=== PATIENT | male | born 1945 | race Caucasian/White ===

== ENCOUNTER → 2022-11-30 12:35 | Outpatient (CLI) | payer MEDICARE, SELFPAY ==
--- NOTE | 2022-11-30 | DI.ECHO.S_ITS ---
[facility]---------+ [facility] +---------+ : : [address] : : : : [id number] : : : : Phone: [phone]---------+ Echocardiogram Report + + :Name: GIANNA LOPEZ Study Date: 11/30/2022 Height: 67 in : :[facility] ReadingLocation: Weight: 166 lb : : Gender: Male BSA: 1.9 m2 : :: 1945 Age: 77 yrs BP: 146/80 mmHg: :Reason For Study: PVCs, dyspnea on exertion : :Ordering Physician: Toribio : :Cathy Schaefer Performed By: Laura Lynne : :Referring: TORIBIO SCHAEFER : + + Interpretation Summary 1) Normal left ventricular thickness, size, wall motion, and systolic function (EF 60-65%). 2) Normal right ventricular size and function. 3) No significant valvular abnormalities. 4) The right ventricular systolic pressure is estimated to be at least 43 mmHg based on an estimated right atrial pressure of 8 mm Hg. 5) No prior Echo available for comparison. Procedure: A two-dimensional transthoracic echocardiogram with color flow and Doppler was performed. The patient was in sinus bradycardia with heart rates between 50-66 bpm during the exam. The patient had frequent PVCs during the exam. Left Ventricle: The left ventricle is normal in size and wall thickness. The ejection fraction is estimated to be 60-65%. Left ventricular systolic function appears normal without focal wall motion abnormalities. Diastolic parameters suggest a relaxation abnormality of the left ventricle, consistent with probable normal filling pressures. Right Ventricle: The right ventricle is normal in size and function. Atria: The left atrium is moderately dilated. Right atrial size is normal. There is no Doppler evidence for an interatrial shunt. Mitral Valve: The mitral valve is normal in structure and function. The mitral valve leaflets appear mildly thickened, but open well. There is trace mitral regurgitation. Aortic Valve: The aortic valve is normal in structure and function. There is no aortic valve stenosis. There is trace aortic regurgitation. Tricuspid Valve: The tricuspid valve is normal in structure and function. There is mild tricuspid regurgitation. The right ventricular systolic pressure is estimated to be at least 43 mmHg based on an estimated right atrial pressure of 8 mm Hg. Pulmonic Valve: The pulmonic valve leaflets are thin and pliable; valve motion is normal. There is no pulmonic valvular regurgitation. Great Vessels: The aortic root is not well visualized but is probably normal size. The dimensions of the ascending aorta are normal. The IVC is dilated (diameter is greater than 2.1 cm) yet it collapses greater than 50% with a sniff. This suggests a right atrial pressure of 8 mm Hg. Pericardium/ Pleura There is no pericardial effusion. There is no pleural effusion. MMode/2D Measurements & Calculations LVIDd: 4.8 cm LVOT diam: 2.0 cm LVIDs: 3.2 cm Ao root diam: 3.6 cm FS: 33.9 % asc Aorta Diam: 3.0 cm EPSS: 0.35 cm IVSd: 1.0 cm LVPWd: 0.94 cm LV flores. diameter/BSA (cm/m^2): 2.6 LV sys. diameter/BSA (cm/m^2): 1.7 LA A2 area: 19.3 cm2 RA long axis: 5.2 cm LA A4 area: 23.6 cm2 RA area: 17.2 cm2 LA length (vol): 5.8 cm RA vol: 48.1 ml LA vol: 67.2 ml RA : 25.8 ml/m2 LA vol index: 36.0 ml/m2 IVC diam: 2.4 cm RVD1 (basal): 3.7 cm TAPSE: 2.3 cm Doppler Measurements & Calculations Ao V2 max: 108.7 cm/sec LVOT Max Marco A: 83.5 cm/sec Ao V2 mean: 83.8 cm/sec LV V1 max P.8 mmHg Ao max P.7 mmHg LV V1 VTI: 16.8 cm Ao mean P.0 mmHg ELVIS(I,D): 2.0 cm2 Ao V2 VTI: 25.1 cm ELVIS(V,D): 2.3 cm2 sev ratio: 0.67 ELVIS indexed to BSA (cm^2/m^2): 1.1 MV E max marco a: 64.6 cm/sec TR max marco a: 295.2 cm/sec MV A max marco a: 92.3 cm/sec TR max P.9 mmHg MV E/A: 0.70 PA V2 max: 96.1 cm/sec Med Peak E' Marco A: 7.7 cm/sec PA V2 mean: 73.3 cm/sec E/E' med: 8.4 PA mean P.3 mmHg Lat Peak E' Marco A: 9.4 cm/sec E/E' lat: 6.8 E/e' average: 7.6 MV dec time: 0.25 sec MVA(VTI): 2.4 cm2 MV V2 mean: 69.1 cm/sec SV(LVOT): 50.8 ml MV mean P.1 mmHg MV V2 VTI: 21.1 cm Reading Physician:03:[id number] PM
== END ==
PROVIDERS: Family Provider Family Medicine; PCP Family Medicine; Referring Provider Internal Medicine Cardiovascular Disease; Visit Provider Internal Medicine Cardiovascular Disease
DX: I49.3 Ventricular premature depolarization (principal); R06.09 Other forms of dyspnea; I07.1 Rheumatic tricuspid insufficiency
CPT/HCPCS: 93306

== ENCOUNTER → 2022-12-18 15:17 | Outpatient (CLI) | payer MEDICARE, SELFPAY ==
--- NOTE | 2022-12-18 18:40 | DI.NM.S_ITS ---
DATE OF SERVICE: 12/18/2022 PROCEDURE PERFORMED: Exercise treadmill stress test without imaging. ORDERING PROVIDER: Dr. Vahe Schaefer. INDICATIONS: The patient is a 77-year-old male with exertional dyspnea and PVCs. FINDINGS: 1. The patient was able to exercise for 5 minutes, 30 seconds on a standard Rangel protocol, suggesting fair exercise capacity with an MADDY of -4%, achieving 6.4 METs. 2. The patient had a slightly accelerated heart rate response to exercise with a resting heart rate of 97 BPM, increasing to a maximum of 171 BPM (121% of his predicted maximum). He had a normal blood pressure response to exercise. 3. He had no chest discomfort or other anginal symptoms. 4. His resting ECG shows sinus rhythm with a RBBB with associated ST-segment abnormalities. With stress, there are no significant ST-segment shifts or arrhythmias except for rare isolated PVCs. IMPRESSION: 1. Normal exercise treadmill study for ischemia. 2. Fair exercise capacity with a mildly accentuated heart rate response to exercise and only rare isolated PVCs. Patrice Goodman - KARI/bella/kayley doc#: [id number]/job#: [id number] dd: 12/18/2022 17:35:00 dt: 12/18/2022 18:23:00 DICTATING /COPIES TO: Nirav Jackson MD COPIES MNE: PERLA
== END ==
PROVIDERS: Family Provider Family Medicine; PCP Nurse Practitioner Family; Referring Provider Internal Medicine Cardiovascular Disease; Visit Provider Internal Medicine Cardiovascular Disease
DX: I49.3 Ventricular premature depolarization (principal); R06.09 Other forms of dyspnea
CPT/HCPCS: 93017

== ENCOUNTER 2025-09-07 09:05 | Day surgery (SDC) | payer MEDICARE, SELFPAY ==
[2025-08-20 14:08] VITALS: BMI 21.1
[2025-09-07] VITALS (13 sets, daily range): BP systolic 116–139; BP diastolic 57–73; PULSE 67–85; RESP 15–22; TEMP 36.3–36.9; O2SAT 94–98
--- NOTE | 2025-09-07 06:41 | P.OP.PRE_ITS ---
Pre-operative Note
--- NOTE | 2025-09-07 06:41 | PM.PREOP ---
Pre-operative Note Interval Note History & Physical reviewed/Exam performed by Physician: Yes Changes to H&P: No ASA Class (for procedural sedation): II
[2025-09-07] MEDS: LACTATED RINGERS 1,000 ML 42 ML IV (10:38)
--- NOTE | 2025-09-07 11:39 | SUR.OPER ---
Supine on padded OR bed, head on pillow, arms padded and tucked at sides, legs uncrossed, safety belt at thigh, tape over blanket over lower legs . shoulder strap over shoulders surgeon present for positioning
[2025-09-07] MEDS: BUPivacaine 0.25% W/ EPI (PF) 30 ML VIAL 60 ML INJ (11:44)
--- NOTE | 2025-09-07 12:08 | P.OP_ITS ---
Operative Date/Time/Diagnoses
--- NOTE | 2025-09-07 12:08 | PM.OP.1 ---
Operative Date/Time/Diagnoses Date of procedure: 09/07/25 Time of procedure: 12:08 Pre-op diagnosis: Right inguinal hernia Post-op diagnosis: same Procedure & Clinicians Procedure: Laparoscopic right inguinal hernia repair with mesh (TEP) Same procedure(s) as scheduled: Yes Indications: 80yo M with symptomatic RIH. Surgeon: Nestor Harris Assisted?: Yes Cotton Grader: Teddy Connell Anesthesia Type: General Operative Notes Findings: Indirect right inguinal hernia Closure Type: primary Specimen(s): none sent Applied: none Estimated Blood Loss (mL): 5 Procedure in detail: After informed consent and satisfactory general endotracheal anesthesia, the groins were shaved, prepped and draped in the usual sterile manner.? The patient received appropriate preoperative antibiotics and DVT prophylaxis.? Surgical time-out was performed with all team members in agreement.? The correct side was marked in the preoperative holding area.? The preperitoneal space was entered via an infraumbilical incision.? An 0 Vicryl [id number] suture was placed on the anterior rectus sheath incision lateral to midline, ipsilateral to the side of the hernia.? The rectus muscle was retracted laterally and the preperitoneal space was dissected with a blunt 10 mm instrument.? The 10 mm trocar was inserted and the preperitoneal space was insufflated to a pressure of 12 mmHg with carbon dioxide gas.? This allowed direct visual placement of two 5 mm trocars in the suprapubic midline.? The patient was placed in Trendelenburg position.? We further dissected the preperitoneal space including the femoral, direct and indirect spaces.? We dissected out lateral and an ilioinguinal nerve block was performed under direct vision by injecting 10 cc of 0.5% Marcaine with epinephrine into the transversus muscle under direct vision 2 fingerbreadths medial to the anterior superior iliac spine.? A total of 30 cc of 0.5% Marcaine with epinephrine was used.? The remainder was injected into the musculature at the end of the procedure for postoperative analgesia.? Once the preperitoneal space was dissected free we noticed an indirect inguinal hernia. There were no direct or femoral defects.? The peritoneum was dissected proximally off of the cord structures to allow room for the mesh.?A 3-O PDS endoloop was applied to the base of the hernia sac. A large Bard 3D Duramax mesh was selected and inserted into the preperitoneal space and unrolled until it was in perfect position and noted to lay in a flat position without wrinkling.? The mesh covered all 3 potential hernia defects widely.? Hemostasis was excellent throughout.? I held the lower border of the mesh with the grasper as we released the carbon dioxide and the peritoneum was noted to relax in a very pleasing manner against the mesh holding it in place.? No tacking or fixation was required. The trocars were remove and there was no bleeding noted at the trocar sites.? The 0 Vicryl [id number] suture was tied on the umbilical fascia with no palpable fascial defects.? The skin incisions were closed using 4-0 Monocryl in a subcuticular manner.? Dermabond glue was applied as a final dressing.? The instrument, sponge and needle counts were all correct x2.? The patient tolerated the procedure well and was extubated in the operating room and transported to the recovery area in stable condition. Complications: none Post-operative Condition: stable Disposition: PACU Plan for aftercare: PACU then home
[2025-09-07] MEDS: ACETAMINOPHEN IV 1,000 MG/100 ML VIAL 400 MG IV (12:50)
== END 2025-09-07 15:40 | disposition home or self-care (01) ==
PROVIDERS: Family Provider Family Medicine; PCP Physician Assistant; Referring Provider Surgery; Visit Provider Surgery
PROC: 0YQ54ZZ Repair Right Inguinal Region, Percutaneous Endoscopic Approach (ICD-10-PCS; CPT 49650; principal; 2025-09-07 11:15)
DX: K40.90 Unilateral inguinal hernia, without obstruction or gangrene, not specified as recurrent (principal); Z87.891 Personal history of nicotine dependence
CPT/HCPCS: 49650; C1781; J0131; J0330; J0689; J2405; J2704; J3010; J7120